=== PATIENT | male | born 2000 | race African-American/Black ===

== ENCOUNTER 2024-07-25 13:56 | Emergency (ER) | payer BC ==
[~2024-07-25] VITALS: Ht 175.3 cm; Wt 81.8 kg
[2024-07-25 14:02] VITALS: TEMP 98.2
[2024-07-25 15:17] VITALS: BP 139/83; PULSE 80
== END 2024-07-25 15:17 | disposition home or self-care (01) ==
LOC: COL.ER 13:56
DX: H53.8 Other visual disturbances (principal)